=== PATIENT | female | born 2000 | race Caucasian/White ===

== ENCOUNTER 2021-12-19 02:32 | Emergency (ER) | payer OTHER ==
[2021-12-19 02:49] VITALS: BP 109/73; PULSE 55; TEMP 99; BMI 21.2
[2021-12-19] MEDS ORDERED: ACETAMINOPHEN 1000 MG/100 ML BAG IVPB ONE (03:08)
[2021-12-19] MEDS ORDERED: SODIUM CHLORIDE 1,000 ML IV STA (03:08)
[2021-12-19] MEDS ORDERED: ONDANSETRON 4 MG/2 ML VIAL ONE (03:10)
[2021-12-19] MEDS ORDERED: ACETAMINOPHEN INJECTION 100 ML IVPB ONE (03:10)
[2021-12-19] MEDS ORDERED: ONDANSETRON 4 MG/2 ML VIAL IVPUSH ONE (03:10)
[2021-12-19 04:39] LABS: BASO % 0.7 % (0-2.0); HEMATOCRIT 32.5 % (32.4-45.2); HEMOGLOBIN 11.3 GM/dL (10.7-15.3); LYMPH % 42.8 % (8-40); MCH 30.5 pg (25.7-33.7); MCHC 34.6 g/dl (32.0-36.0); MEAN CELL VOLUME 88.1 fl (80-96); MONO % 6.7 % (3.8-10.2); NEUT % 47.8 % (42.8-82.8); PLATELET COUNT 260 10^3/uL (134-434); RBC 3.69 M/mm3 (3.60-5.2); RDW 14.7 % (11.6-15.6); WHITE BLOOD COUNT 5.3 K/mm3 (4.0-10.0)
[2021-12-19 04:44] LABS: HCG,QUALITATIVE URINE Negative
[2021-12-19 04:46] LABS: EPI CELLS >36 /uL (0-25.1); HYALINE CASTS 1 /uL (0-3.1); PH,URINE 5.5 (5.0-8.0); URINE APPEARANCE CLEAR; URINE BACTERIA 759 /uL (0-1359); URINE BILIRUBIN NEGATIVE (NEGATIVE); URINE COLOR YELLOW; URINE GLUCOSE (UA) NEGATIVE (NEGATIVE); URINE KETONE NEGATIVE (NEGATIVE); URINE LEUK ESTERASE TRACE (NEGATIVE); URINE NITRITE NEGATIVE (NEGATIVE); URINE PROTEIN NEGATIVE (NEGATIVE); URINE RBC 35 /uL (0-23.9); URINE UROBILINOGEN 0.2 mg/dL (0.2-1.0); URINE WBC 40 /uL (0-25.8)
[2021-12-19 04:57] LABS: CALCIUM 8.9 mg/dL (8.5-10.1)
[2021-12-19 04:58] LABS: ALBUMIN 3.4 g/dl (3.4-5.0); BLOOD UREA NITROGEN 12.5 mg/dL (7-18)
[2021-12-19 05:01] LABS: CREATININE 0.7 mg/dL (0.55-1.3)
[2021-12-19 05:02] LABS: TOT PROT 6.7 g/dl (6.4-8.2)
[2021-12-19 05:03] LABS: BILIRUBIN,TOTAL 0.5 mg/dL (0.2-1)
== END 2021-12-19 05:27 | disposition home or self-care (01) ==
LOC: FER 02:32
PROC: 3E0333Z Introduction of Anti-inflammatory into Peripheral Vein, Percutaneous Approach (ICD-10-PCS; principal; 2021-12-19)
PROC: 3E033GC Introduction of Other Therapeutic Substance into Peripheral Vein, Percutaneous Approach (ICD-10-PCS; 2021-12-19)
PROC: 3E0337Z Introduction of Electrolytic and Water Balance Substance into Peripheral Vein, Percutaneous Approach (ICD-10-PCS; 2021-12-19)
DX: R10.2 Pelvic and perineal pain (principal)
CPT/HCPCS: 0241U-QW; 36415; 74176-TC; 80053; 81003; 81025; 84703; 85025; 99284-25

== ENCOUNTER 2021-12-25 20:17 | Emergency (ER) | payer OTHER ==
[2021-12-25] MEDS ORDERED: methylPREDNISolone NA SUCC 125 MG/2 ML VIAL IVPB ONE (20:24)
[2021-12-25 20:29] VITALS: BMI 21.2
[2021-12-25 21:45] VITALS: BP 110/69; PULSE 62; RESP 16
== END 2021-12-25 23:05 | disposition left against medical advice (07) ==
LOC: FER 20:17
PROC: 3E033GC Introduction of Other Therapeutic Substance into Peripheral Vein, Percutaneous Approach (ICD-10-PCS; principal; 2021-12-25)
DX: T63.441A Toxic effect of venom of bees, accidental (unintentional), initial encounter (principal)
CPT/HCPCS: 99284-25

== ENCOUNTER 2022-03-03 19:59 | Emergency (ER) | payer OTHER ==
[2022-03-03] MEDS ORDERED: IBUPROFEN 400 MG TABLET (FP) PO ONE ×2 (20:02→20:05)
[2022-03-03 20:29] VITALS: BP 100/65; PULSE 56; RESP 16; TEMP 98.7; BMI 20.4
== END 2022-03-03 21:24 | disposition home or self-care (01) ==
LOC: FER 19:59
DX: R51.9 Headache, unspecified (principal)
CPT/HCPCS: 99283-25

== ENCOUNTER 2023-04-30 20:38 | Emergency (ER) | payer OTHER ==
[2023-04-30 20:45] VITALS: BP 96/58; PULSE 64; RESP 16; TEMP 97.9; BMI 18.5
[2023-04-30] MEDS ORDERED: SODIUM CHLORIDE 1,000 ML IV STA (21:05)
[2023-04-30] MEDS ORDERED: ACETAMINOPHEN 1000 MG/100 ML BAG IVPB ONE (21:05)
[2023-04-30] MEDS ORDERED: FAMOTIDINE 20 MG/50 ML IVPB 20 MG/50 ML MG IVPB ONE ×2 (21:05→21:27)
[2023-04-30] MEDS ORDERED: ACETAMINOPHEN INJECTION 100 ML IVPB ONE (21:28)
[2023-04-30 21:51] LABS: HEMOGLOBIN 12.2 G/dL (10.7-15.3); MCH 30.3 pg (25.7-33.7); MCHC 33.9 g/dl (32.0-36.0); MEAN CELL VOLUME 89.6 fl (80-96); PLATELET COUNT 227.3 10^3/uL (134-434); RBC 4.02 10^6/uL (3.60-5.2); RDW 13.6 % (11.6-15.6); WHITE BLOOD COUNT 9.4 10^3/uL (4.0-10.8)
[2023-04-30 21:59] LABS: PLATELET ESTIMATE ADEQUATE
[2023-04-30 22:12] LABS: ALBUMIN 4.1 g/dl (3.4-5.0); BILIRUBIN,TOTAL 0.5 mg/dl (0.2-1); CREATININE 0.7 mg/dl (0.6-1.3); POTASSIUM 3.8 mmol/L (3.5-5.1); TOT PROT 6.5 g/dl (6.4-8.2)
== END 2023-04-30 22:28 | disposition home or self-care (01) ==
LOC: FER 20:38
PROC: 3E033GC Introduction of Other Therapeutic Substance into Peripheral Vein, Percutaneous Approach (ICD-10-PCS; principal; 2023-04-30)
PROC: 3E033NZ Introduction of Analgesics, Hypnotics, Sedatives into Peripheral Vein, Percutaneous Approach (ICD-10-PCS; 2023-04-30)
DX: K52.9 Noninfective gastroenteritis and colitis, unspecified (principal); R11.2 Nausea with vomiting, unspecified; R10.13 Epigastric pain
CPT/HCPCS: 36415; 80053; 85027; 96365; 96375; 99284-25

== ENCOUNTER 2023-10-06 20:19 | Emergency (ER) | payer OTHER ==
[2023-10-06 20:31] VITALS: BP 109/73; PULSE 67; RESP 16; TEMP 97.6; BMI 18.5
[2023-10-06 21:13] LABS: HCG,QUALITATIVE URINE Negative
[2023-10-06] MEDS ORDERED: FAMOTIDINE 20 MG/50 ML IVPB 20 MG/50 ML MG IVPB ONE (21:24)
[2023-10-06] MEDS ORDERED: ACETAMINOPHEN INJECTION 100 ML IVPB ONE (21:24)
[2023-10-06] MEDS ORDERED: MAG HYDROX/AL HYDROX/SIMETH 30 ML UNIT-DOSE CUP ONE (21:24)
[2023-10-06] MEDS ORDERED: ONDANSETRON 4 MG/2 ML VIAL ONE (21:24)
[2023-10-06] MEDS: SODIUM CHLORIDE 0.9% 500 ML INFUS.BAG IV ONE (21:37)
[2023-10-06] MEDS: MAG HYDROX/AL HYDROX/SIMETH -MYLANTA- ORAL SUSPENSION PO ONE (21:37)
[2023-10-06] MEDS: ONDANSETRON 4 MG/2 ML VIAL IVPB ONE (21:38)
[2023-10-06] MEDS: FAMOTIDINE 20 MG/50 ML IVPB 20 MG in PREMIX 50 IVPB ONE (21:38)
[2023-10-06] MEDS: ACETAMINOPHEN 1000 MG/100 ML BAG IVPB ONE (21:38)
[2023-10-06 21:53] LABS: HEMATOCRIT 36.5 % (32.4-45.2); HEMOGLOBIN 12.3 G/dL (10.7-15.3); MCH 30.8 pg (25.7-33.7); MCHC 33.6 g/dl (32.0-36.0); MEAN CELL VOLUME 91.6 fl (80-96); MEAN PLT VOLUME 8.5 fl (7.5-11.1); PLATELET COUNT 225.3 10^3/uL (134-434); RBC 3.99 10^6/uL (3.60-5.2); RDW 14.1 % (11.6-15.6); WHITE BLOOD COUNT 5.8 10^3/uL (4.0-10.8)
[2023-10-06 22:05] LABS: ALBUMIN 4.1 g/dl (3.4-5.0); BILIRUBIN,TOTAL 0.4 mg/dl (0.2-1); CALCIUM 9.2 mg/dl (8.5-10.1); CREATININE 0.7 mg/dl (0.6-1.3); POTASSIUM 3.9 mmol/L (3.5-5.1); TOT PROT 6.3 g/dl (6.4-8.2)
[2023-10-06 22:46] LABS: PLATELET ESTIMATE ADEQUATE
== END 2023-10-06 22:59 | disposition home or self-care (01) ==
LOC: FER 20:19
PROC: 3E033GC Introduction of Other Therapeutic Substance into Peripheral Vein, Percutaneous Approach (ICD-10-PCS; principal; 2023-10-06)
PROC: 3E030NZ Introduction of Analgesics, Hypnotics, Sedatives into Peripheral Vein, Open Approach (ICD-10-PCS; 2023-10-06)
PROC: 3E030GC Introduction of Other Therapeutic Substance into Peripheral Vein, Open Approach (ICD-10-PCS; 2023-10-06)
DX: R11.2 Nausea with vomiting, unspecified (principal); R10.84 Generalized abdominal pain
CPT/HCPCS: 36415; 76830-TC; 80053; 81003; 83690; 84703; 85027; 99284-25; J0131

== ENCOUNTER 2024-03-26 20:54 | Emergency (ER) | payer SELFPAY ==
[2024-03-26 21:14] VITALS: BP 99/73; PULSE 70; RESP 16; TEMP 98.2; BMI 20.7
[2024-03-26] MEDS ORDERED: AZITHROMYCIN 500 MG TABLET ONE (21:14)
[2024-03-26] MEDS: AZITHROMYCIN 500 MG TABLET PO ONE (21:15)
== END 2024-03-26 21:17 | disposition home or self-care (01) ==
LOC: FER 20:54
DX: H66.92 Otitis media, unspecified, left ear (principal); H92.02 Otalgia, left ear
CPT/HCPCS: 99283-25